=== PATIENT | male | born 1950 | race Caucasian/White ===

== ENCOUNTER 2017-07-17 09:41 | Emergency (ER) | payer MEDICARE, BC ==
[2017-07-17] MEDS ORDERED: Sodium Chloride 0.9% 1,000 ML IV ONE ×2 (09:56→11:21)
[2017-07-17 11:05] VITALS: BP 110/68
--- NOTE | 2017-07-17 20:11 | ER ---
HISTORY OF PRESENT ILLNESS: A a 67-year-old male who comes to the emergency room with complaints of lightheadedness and dizziness that seems to happen with activity. He states he was feeling fine until he got to the clinic. He was coming in today for a postop check. The patient underwent hiatal hernia surgery 3 weeks ago. His blood pressure was known to be low when he was checked today. He states that when he got here, he had to stop a couple of times and wait for the dizziness to settle down. The patient denies any chest pain. He denies any shortness of breath. He denies any recent falls or injuries. The patient states he has been doing well since the surgery 3 weeks ago. He has not had any problems with nausea or vomiting, but he knows he has not been eating or drinking as much as he should. CURRENT MEDICATIONS: Reviewed. The patient is not on any new medications. OBJECTIVE: GENERAL APPEARANCE: The patient is awake and alert. No respiratory distress. VITAL SIGNS: Reviewed. Initial blood pressure is 87/55, pulse is 96, he is afebrile, O2 sats are good at 100%. HEENT: Eyes: Pupils equal, round, and reactive to light. EOMs are intact. Ears: TMs are normal. Oral mucous membranes are dry. Tonsils not enlarged or injected. Pharynx not inflamed. NECK: Supple. LUNGS: Clear. CARDIAC: Heart sounds distinct without murmurs. ABDOMEN: Reveals small incisions from the previous surgery that are healing well without any sign of infection. Bowel sounds are present. SKIN: Warm and dry. DIAGNOSTIC STUDIES: EKG was obtained showing a tachycardia rhythm, otherwise in normal sinus rhythm. The patient's pulse on the EKG was 111. INITIAL TREATMENT PLAN: An IV was started, the patient was given a bolus of 1 L of normal saline. Labs include CBC and comprehensive metabolic panel. Lab results are normal. Troponin level is negative. Chest x-ray was obtained showing no acute findings. Radiologist's report does comment on increased air volume. This is most likely due to the patient's recent surgery. After the first liter of normal saline, the patient was able to sit up, his numbers improved. Blood pressure is now 108/65, pulse is 87. The patient is still having some positive orthostatic changes. A second liter of normal saline was given as a bolus and this resolved the patient's symptoms. He was then able to stand and walk across the emergency room without any lightheadedness or dizziness. He states he feels fine. He is not having any problems with shortness of breath. Blood pressure last checked is 110/68. At this point, the patient can be discharged. He is to hold his lisinopril. I understand he is also on a low dose of hydrochlorothiazide. He is to hold these 2 medications over the weekend and resume them next Thursday. He is to go home, increase his liquid intake, and follow up with his primary care doctor early next week for a recheck. DIAGNOSIS: Hypotension, symptomatic. CRS/MODL /[id number]
--- NOTE | 2017-07-18 09:31 | CR ---
DATE OF SERVICE: 07/17/2017 CLINICAL DATA: Low BP - Lightheaded.. AP CHEST: Comparison is made to a prior exam dated 07/30/2015. The heart size is normal. There is calcification of the aortic arch. There are emphysematous changes throughout both lungs. There is increased density in the right lung base consistent with basilar atelectasis or infiltrate. Pneumonia should be considered. There is an oval shaped nodular density in the right lower lung just lateral and inferior to the right hilum. It does not appear changes from the prior exam. Again, a chest CT should be considered. The remainder of the exam is unchanged from the prior. [id number] MTDD
== END 2017-07-17 12:20 | disposition home or self-care (01) ==
LOC: LB.ED 09:41
DX: I95.9 Hypotension, unspecified (principal); Z98.890 Other specified postprocedural states
CPT/HCPCS: 36415; 71045; 80053; 84484; 85025; 93005; 96360; 96361; 99284; J7040